=== PATIENT | male | born 1985 | race Two or more races ===

== ENCOUNTER 2018-12-15 15:37 | Emergency (ER) | payer SELFPAY ==
[~2018-12-15] VITALS: Ht 165.1 cm; Wt 79.0 kg
[2018-12-15] MEDS ORDERED: IBUPROFEN 800MG TABLET PO ONE (17:30)
[2018-12-15 18:34] VITALS: BP 133/88
== END 2018-12-15 18:34 | disposition home or self-care (01) ==
LOC: ER 15:37
DX: M25.561 Pain in right knee (principal); R22.9 Localized swelling, mass and lump, unspecified
CPT/HCPCS: 73562; 99283